=== PATIENT | female | born 2000 | race Two or more races ===

== ENCOUNTER 2023-03-23 18:21 | Inpatient (IN) | payer OTHER ==
[~2023-03-23] VITALS: Ht 160 cm; Wt 68.9 kg
[2023-03-23] MEDS ORDERED: PRENATAL TABLE1 EAC1 PO (19:18)
[2023-03-26] MEDS ORDERED: IBUPROFEN800 MG PO (09:37)
== END 2023-03-26 11:07 | disposition home or self-care (01) | DRG 788 ==
LOC: LDR 18:21 → OB/GYN 18:21 → O/R 20:45 → OB/GYN 03-24 03:01
PROVIDERS: ADMIT Obstetrics & Gynecology; ATTEND Obstetrics & Gynecology
PROC: 4A1HXCZ Monitoring of Products of Conception, Cardiac Rate, External Approach (ICD-10-PCS; 2023-03-23)
PROC: 10D00Z1 Extraction of Products of Conception, Low, Open Approach (ICD-10-PCS; principal; 2023-03-23 20:30)
DX: O36.8130 Decreased fetal movements, third trimester, not applicable or unspecified (principal); Z3A.38 38 weeks gestation of pregnancy; Z37.0 Single live birth; Z20.822 Contact with and (suspected) exposure to COVID-19